=== PATIENT | female | born 1955 ===

== ENCOUNTER → 2021-09-09 | Outpatient (CLI) | payer BC ==
[~2021-09-09] VITALS: Ht 172.7 cm; Wt 86.2 kg
[~2021-09-09] MED LIST: COZAAR 25 MG TA25 M1 PO; LIPITOR 20 MG T20 M1 PO; MELOXICAM15 MG PO; OMEPRAZOLE40 MG PO
[2021-09-09 14:53] VITALS: BP 144/94
== END | disposition home or self-care (01) ==
LOC: PAIN 09:17
PROVIDERS: ATTEND Anesthesiology Pain Medicine
DX: M54.16 Radiculopathy, lumbar region (principal); G89.29 Other chronic pain; I10 Essential (primary) hypertension; K21.9 Gastro-esophageal reflux disease without esophagitis; Z98.890 Other specified postprocedural states; Z79.899 Other long term (current) drug therapy

== ENCOUNTER → 2021-10-10 | Outpatient (CLI) | payer BC ==
[~2021-10-10] VITALS: Ht 172.7 cm; Wt 91.9 kg
[2021-10-10 14:22] VITALS: BP 112/79
--- NOTE | 2021-10-10 14:40 | NUR ---
[facility] Assessment: 1. History of Osteoarthritis: UNKNOWN History of Rheumatoid Arthritis: DENIES 2. Height: 5 ft. 8 in. 172.7 cm. Weight: 202.6 lb. oz. 91.899 kg. Patient's BMI: 30.8 3. Vital Signs: BP: 112/79 Pulse: 75 Resp: 14 Temp: 02 Sat: 95 ECG Mon: 4. Pain Intensity: 0 TO 1 5. Fall Risk: Dizziness: N Needs help standing or walking: N Fallen in the last 3 months: N Fall risk comments: 6. Patient on Blood Thinner: None 7. History of Hypertension: Y 8. Opioid Therapy greater than 6 weeks: N Opiate Contract Signed: 9. Risk Assessment Tool Provided: 0-3 10. Functional Assessment Tool: 11. Recreational Drug Use: Never Drug Type: Tobacco Use: Never Smoker Tobacco Type: Amount or Packs/day: How Many Years: Alcohol Use: No Frequency: Quant:
== END ==
LOC: PAIN 11:04
PROVIDERS: ATTEND Anesthesiology Pain Medicine
DX: M54.16 Radiculopathy, lumbar region (principal); M48.061 Spinal stenosis, lumbar region without neurogenic claudication; Z79.899 Other long term (current) drug therapy